=== PATIENT | female | born 1960 | race Caucasian/White ===

== ENCOUNTER → 2016-12-17 | Outpatient (CLI) | payer BC ==
[~2016-12-17] MED LIST: ACETAMINOPHEN PO; ALAVERT10 MG PO; BENTYL10 MG DOB; CALCIUM + D 6001 TA1 PO; CLARITIN10 M1 PO; CRESTOR PO; CRESTOR10 MG PO; DEXILANT60 MG PO; FISH OIL 1,2001 EAC1 PO; GLUCOTROL PO; GUAIFENESIN400 M1 PO; KOMBIGLYZE XR1 EAC2 PO; LOMOTIL WHITE2.5 MG DOB; LORTAB 5/500 TA1 TA1 PO; LOVAZA1 G PO; METFORMIN HCL500 M1 PO; MUCINEX100 MG/BOX PO; PHENERGAN25 MG PO; PLAVIX PO; VITAMIN C500 M1 PO
--- NOTE | ~2016-12-17 | US37 ---
[facility] A Service of [facility] & [facility] RADIOLOGY TEXT RESULTS PATIENT: SARAH MOBLEY LOCATION: [facility] : 58 UNIT #: [id number] AGE: [address]: WENCESLAO GUERRERO SEX: F ORDER DR: [id number] [facility] [address]. [place], [place] [address] [id number] O MR#: [id number] Acc #: [id number] NAME: SARAH MOBLEY : 1960 SEX: F STUDY DATE/TIME: 12/17/2016 12:33 UNIT: [facility] ROOM: STUDY DESCRIPTION: US Carotid W/Doppler Bilateral Attending Physician: Wenceslao Estrada Od Referring Physician: Wenceslao Estrada Od Ordering Physician: Wenceslao Estrada Od Primary Care Physician: Sai Davila M.D. MEDICAL IMAGING REPORT This report is preliminary unless electronic signature is present EXAM Carotid Doppler, bilateral. DATE OF EXAM 12/17/2016 HISTORY Loss of eye sight, blurred vision right eye, right retinal artery occlusion on physical examination, 11/19/2016. Evaluate for carotid stenosis. FINDINGS Murdock-scale carotid artery images were obtained as well as Doppler waveform spectral analysis and color flow Doppler imaging. The examination was interpreted according to NASCET criteria. There is elevated peak systolic velocity in the midportion of the right internal carotid artery at 129 cm/sec characteristic of approximate 50% to 69% diameter reduction. Peak velocity in the right common and external carotid arteries is 76 cm/sec and 94 cm/sec respectively. There is no hemodynamically significant stenosis in the left internal carotid artery which demonstrated peak systolic velocity of 96 cm/sec. Peak velocity in the left common and external carotid arteries is 96 cm/sec and 78 cm/sec respectively. Antegrade blood flow is seen both vertebral arteries. There is mild calcified plaque bilaterally. IMPRESSION 1. Approximate 50% to 69% diameter reduction involving the mid portion of the right internal carotid artery. 2. No hemodynamically significant stenosis in the left internal carotid artery 3. Antegrade blood flow in both vertebral arteries. [facility] A Service of [facility] RADIOLOGY TEXT RESULTS PATIENT: SARAH MOBLEY LOCATION: [facility] : 58 UNIT #: [id number] AGE: [address]: WENCESLAO GUERRERO SEX: F ORDER DR: Dictated by... Cooper Silva M.D. THIS IS AN ELECTRONICALLY VERIFIED REPORT Cooper Silva M.D. at 12/18/2016 8:07 AM NED/abel TD: 12/17/2016 18:31 JOB #: [id number] MEDICAL IMAGING REPORT Page 1 of 1 COPY
== END | disposition home or self-care (01) ==
LOC: CNIV 11:55
DX: H34.211 Partial retinal artery occlusion, right eye (principal)
CPT/HCPCS: 93306; 93880